=== PATIENT | male | born 2000 | race Hispanic/Latino ===

== ENCOUNTER 2022-10-23 02:51 | Emergency (ER) | payer SELFPAY ==
[2022-10-23] MEDS ORDERED: Tetracaine 0.5% PF 4 ML BOT ONE (03:04)
[2022-10-23] MEDS ORDERED: NEOMYCIN-POLYMYXIN-HC EAR SUSP 200 DROP/10 ML BOT ONE (03:14)
== END 2022-10-23 03:27 | disposition home or self-care (01) ==
LOC: MADERS 02:51
DX: S00.411A Abrasion of right ear, initial encounter (principal); X58.XXXA Exposure to other specified factors, initial encounter
CPT/HCPCS: 99282